=== PATIENT | male | born 1950 | race Caucasian/White ===

== ENCOUNTER 2019-05-23 13:09 | Emergency (ER) | payer MEDICARE, OTHER ==
[~2019-05-23] VITALS: Ht 182.9 cm; Wt 113.6 kg
[2019-05-23] MEDS ORDERED: COZAAR100 MG PO (13:30)
[2019-05-23] MEDS ORDERED: GLUCOPHAGE1000 MG PO (13:30)
[2019-05-23] MEDS ORDERED: ZOCOR 40MG40 MG PO (13:30)
[2019-05-23 14:45] VITALS: BP 117/72; PULSE 82; TEMP 97.4
== END 2019-05-23 14:52 | disposition home or self-care (01) ==
LOC: COL.ER 13:09
DX: S09.90XA Unspecified injury of head, initial encounter (principal); S01.111A Laceration without foreign body of right eyelid and periocular area, initial encounter; I10 Essential (primary) hypertension; E11.9 Type 2 diabetes mellitus without complications; Z23 Encounter for immunization; Z79.84 Long term (current) use of oral hypoglycemic drugs; W25.XXXA Contact with sharp glass, initial encounter; Y92.000 Kitchen of unspecified non-institutional (private) residence as the place of occurrence of the external cause